=== PATIENT | male | born 1960 | race Caucasian/White ===

== ENCOUNTER 2023-10-02 17:13 | Inpatient (IN) | payer MEDICARE, OTHER ==
[~2023-10-02] VITALS: Ht 170.2 cm; Wt 87.8 kg
[~2023-10-02 17:13] MED LIST: CEPH-570 PO; IBUP-1953 PO; LACT1CAP72 PO; LEVE500T9 PO; LISI20TA30 PO; NAPR500T6 PO
[2023-10-02] MEDS ORDERED: LATA7.5D EACHEYE (17:30)
[2023-10-02] MEDS ORDERED: CLON1TAB12 PO (17:30)
[2023-10-02] MEDS ORDERED: LISI10TA29 PO (17:30)
[2023-10-02] MEDS ORDERED: CITA20TA16 PO (17:30)
[2023-10-02] MEDS ORDERED: MAG30ORA PO (17:30)
[2023-10-02] MEDS ORDERED: AMLO-212 PO (17:30)
[2023-10-02] MEDS ORDERED: PANT40TA49 PO (17:30)
[2023-10-02] MEDS ORDERED: LEVE500T20 PO (17:30)
[2023-10-02] MEDS ORDERED: BRIM5DRO11 EACHEYE (17:30)
[2023-10-02] MEDS ORDERED: HYDR-4209 PO (17:30)
[2023-10-02] MEDS ORDERED: ACET325C7 PO (17:30)
[2023-10-02] MEDS ORDERED: ONDANSETRON 4 MG/2 ML VIAL IV PRN (17:45)
[2023-10-02] MEDS ORDERED: ACETAMINOPHEN 325 MG TABLET PO PRN (17:45)
[2023-10-02] MEDS ORDERED: REMEDY ESSENTIAL ZINC PASTE 113 GM TP PRN (17:45)
[2023-10-02] MEDS ORDERED: MAGNESIUM HYDROXIDE 30 ML LIQUID UDC PO PRN (17:45)
[2023-10-02 17:57] LABS: BASOPHILS # (AUTO) 0.1 K/UL (0.0-0.2); BASOPHILS % (AUTO) 1.3 % (0.0-2.0); EOSINOPHILS # (AUTO) 0.3 K/uL (0.0-0.7); EOSINOPHILS % (AUTO) 4.3 % (0.0-7.0); HEMATOCRIT 40.3 % (36.7-47.1); HEMOGLOBIN 13.5 g/dL (12.5-16.3); LYMPHOCYTES # (AUTO) 2.9 K/uL (0.8-4.8); LYMPHOCYTES % (AUTO) 45.5 % (20.5-51.5); MEAN CORPUSCULAR HEMOGLOBIN 29.4 uug (23.8-33.4); MEAN CORPUSCULAR HGB CONC 34 g/dL (32.5-36.3); MEAN CORPUSCULAR VOLUME 87.4 fL (73.0-96.2); MONOCYTES # (AUTO) 0.5 K/uL (0.1-1.30); MONOCYTES % (AUTO) 7.6 % (0.0-11.0); NEUTROPHILS # (AUTO) 2.6 K/uL (1.8-8.9); NEUTROPHILS % (AUTO) 41.3 % (38.5-71.5); PLATELET COUNT (AUTO) 245 K/uL (152-348); RED BLOOD CELL COUNT(AUTO) 4.61 MIL/uL (4.06-5.63); RED CELL DISTRIBUTION WIDTH 15.5 % (12.1-16.2); WHITE BLOOD COUNT (AUTO) 6.4 K/uL (3.6-10.2)
[2023-10-02 18:05] LABS: *BILIRUBIN,URIN NEGATIVE (NEGATIVE); *BLOOD, URINE NEGATIVE (NEGATIVE); *CLARITY,URINE CLEAR (CLEAR); *COLOR,URINE YELLOW (YELLOW); *KETONES,URINE NEGATIVE (NEGATIVE); *PROTEIN,URINE NEGATIVE (NEGATIVE); *UROBILINOGEN,URINE 0.2 E.U./dl (NORMAL); LEUKOCYTE ESTERASE ,URINE NEGATIVE (NEGATIVE); NITRITE, URINE NEGATIVE (NEGATIVE); UGLUCOSE NEGATIVE (NEGATIVE)
[2023-10-02 18:06] LABS: CALCIUM 8.5 mg/dL (8.5-10.1); CARBON DIOXIDE 24 mmol/L (21-32); CHLORIDE 106 mmol/L (98-107); CREATININE 1.1 mg/dL (0.6-1.3); GLUCOSE 101 mg/dL (74-106); POTASSIUM 3.9 mmol/L (3.5-5.1); SODIUM SERUM 141 mmol/L (136-145); UREA NITROGEN, BLOOD 17 mg/dL (7-18)
[2023-10-02 18:07] LABS: AMMONIA 33 umol/L (11-32)
[2023-10-02 18:09] LABS: DIFFERENTIAL COMMENT 1
[2023-10-02 18:16] LABS: ETHANOL 7 MG/DL (0-10)
[2023-10-02 18:19] LABS: ALANINE AMINOTRANSFERASE 31 U/L (16-63); ALBUMIN 3.6 g/dL (3.4-5.0); ALKALINE PHOSPHATASE 66 U/L (50-136); BILIRUBIN,DIRECT 0.1 mg/dL (0.0-0.2); BILIRUBIN,TOTAL 0.3 mg/dL (0.2-1.0); TOTAL PROTEIN, SERUM 7.1 g/dL (6.4-8.2)
[2023-10-02 18:20] LABS: *AMPHETAMINE, URINE NEGATIVE (NEGATIVE); *BARBITURATE, URINE NEGATIVE (NEGATIVE); *BENZODIAZEPINE, URINE NEGATIVE (NEGATIVE); *COCCAINE, URINE NEGATIVE (NEGATIVE); *OPIATE, URINE POSITIVE (NEGATIVE); *PHENCYCLIDINE SCREEN,URINE NEGATIVE (NEGATIVE); THYROID STIMULATING HORMONE 3.449 mIU/mL (0.358-3.740)
[2023-10-02 18:24] LABS: ACETAMINOPHEN < 2.0 ug/mL (10-30)
[2023-10-02 19:11] LABS: ASPARTATE AMINOTRANSFERASE 17 U/L (15-37)
[2023-10-02 19:42] LABS: *CANNABINOID, URINE NEGATIVE (NEGATIVE); FENTANYL, URINE NEGATIVE (NEGATIVE)
[2023-10-02 20:00] VITALS: BP 143/63; TEMP 97.6; O2SAT 96
[2023-10-02] MEDS: DOCUSATE SODIUM 250 MG CAPSULE PO SCH (20:25)
[2023-10-02] MEDS: HYDROCODONE/APAP 5-325MG TABLET PO PRN (20:25)
[2023-10-02] MEDS ORDERED: Medication Not On Formulary EA (Acetaminophen (Tylenol) 650 MG) PO SCH (21:00)
[2023-10-02] MEDS ORDERED: MAG HYDROX/AL HYDROX/SIMETH 30 ML LIQUID UDC PO PRN (21:00)
[2023-10-03 05:45] VITALS: BP 137/86; TEMP 97.8; O2SAT 98
[2023-10-03] MEDS: PANTOPRAZOLE SODIUM 40 MG TABLET.DR PO SCH (06:41)
[2023-10-03 07:18] LABS: BASOPHILS # (AUTO) 0.1 K/UL (0.0-0.2); BASOPHILS % (AUTO) 1.3 % (0.0-2.0); EOSINOPHILS # (AUTO) 0.3 K/uL (0.0-0.7); EOSINOPHILS % (AUTO) 5.7 % (0.0-7.0); HEMATOCRIT 40.9 % (36.7-47.1); HEMOGLOBIN 13.7 g/dL (12.5-16.3); LYMPHOCYTES # (AUTO) 2.4 K/uL (0.8-4.8); LYMPHOCYTES % (AUTO) 44.6 % (20.5-51.5); MEAN CORPUSCULAR HEMOGLOBIN 29.3 uug (23.8-33.4); MEAN CORPUSCULAR HGB CONC 33 g/dL (32.5-36.3); MEAN CORPUSCULAR VOLUME 87.7 fL (73.0-96.2); MONOCYTES # (AUTO) 0.4 K/uL (0.1-1.30); MONOCYTES % (AUTO) 8.5 % (0.0-11.0); NEUTROPHILS # (AUTO) 2.1 K/uL (1.8-8.9); NEUTROPHILS % (AUTO) 39.9 % (38.5-71.5); PLATELET COUNT (AUTO) 215 K/uL (152-348); RED BLOOD CELL COUNT(AUTO) 4.66 MIL/uL (4.06-5.63); RED CELL DISTRIBUTION WIDTH 15.3 % (12.1-16.2); WHITE BLOOD COUNT (AUTO) 5.3 K/uL (3.6-10.2)
[2023-10-03 07:26] LABS: DIFFERENTIAL COMMENT 1
[2023-10-03 07:29] LABS: CALCIUM 8.7 mg/dL (8.5-10.1); CREATININE 1.1 mg/dL (0.6-1.3); MAGNESIUM 2.2 mg/dL (1.8-2.4); PHOSPHOROUS 2.9 mg/dL (2.5-4.9); POTASSIUM 3.8 mmol/L (3.5-5.1)
[2023-10-03] MEDS: levETIRAcetam 500 MG TABLET PO SCH (09:00)
[2023-10-03] MEDS: AMLODIPINE 5 MG TABLET PO SCH (09:18)
[2023-10-03] MEDS: LISINOPRIL 10 MG TABLET PO SCH (09:19)
[2023-10-03] MEDS: CITALOPRAM 20 MG TABLET PO SCH (09:19)
[2023-10-03] MEDS: CLONAZEPAM 1 MG TABLET PO SCH (09:19)
[2023-10-03 11:23] VITALS: BP 110/55; TEMP 97.8; O2SAT 97
[2023-10-03 15:53] VITALS: BP 120/63; TEMP 98.2; O2SAT 96
[2023-10-03 19:00] VITALS: BP 135/72; TEMP 97.8; O2SAT 95
[2023-10-04 05:22] VITALS: BP 125/70; TEMP 97.5; O2SAT 98
[2023-10-04 11:34] VITALS: BP 141/70; TEMP 97.9; O2SAT 97
[2023-10-04 16:09] VITALS: BP 120/67; TEMP 98; O2SAT 98
[2023-10-04 20:51] VITALS: BP 115/51; TEMP 98.4; O2SAT 99
[2023-10-04] MEDS: TEMAZEPAM 15 MG CAPSULE PO PRN (23:23)
[2023-10-05] MEDS: VANCOMYCIN HCL 1,500 MG in IV DEXTROSE 5% 500 ML IV ONE (05:53)
[2023-10-05 06:03] VITALS: BP 122/82; TEMP 97.8; O2SAT 97
[2023-10-05 12:29] VITALS: BP 128/75; TEMP 97.8; O2SAT 98
== END 2023-10-05 12:45 | DRG 101 ==
LOC: ER 17:15 → MEDSURG3 19:25
PROVIDERS: ADMIT Internal Medicine; ATTEND Internal Medicine
DX: G40.909 Epilepsy, unspecified, not intractable, without status epilepticus (principal); E44.0 Moderate protein-calorie malnutrition; E72.20 Disorder of urea cycle metabolism, unspecified; G93.49 Other encephalopathy; E88.09 Other disorders of plasma-protein metabolism, not elsewhere classified; F25.9 Schizoaffective disorder, unspecified; F32.9 Major depressive disorder, single episode, unspecified; J44.9 Chronic obstructive pulmonary disease, unspecified; G47.00 Insomnia, unspecified; F41.9 Anxiety disorder, unspecified; R62.7 Adult failure to thrive; Z68.30 Body mass index [BMI] 30.0-30.9, adult; Z79.899 Other long term (current) drug therapy
CPT/HCPCS: 36415; 70450; 71045; 83605; 83735; 84100; 84443; 84484; 85025; 85730; 87040; 93005; G0378; G0480; J3371; J7060